=== PATIENT | male | born 1985 | race Two or more races ===

== ENCOUNTER 2022-10-28 08:17 | Inpatient (IN) | payer MEDICAID ==
[~2022-10-28] VITALS: Ht 182.9 cm; Wt 84.6 kg
[2022-10-28] MEDS ORDERED: LORazepam 2 MG TABLET PO PRN (09:15)
[2022-10-28] MEDS ORDERED: HALOPERIDOL 5 MG TABLET PO PRN (09:15)
[2022-10-28 11:40] VITALS: BP 115/68
[2022-10-28 16:05] VITALS: BP 122/72
[2022-10-28] MEDS: FluPHENAZine HCL 10 MG TABLET PO SCH (16:50)
[2022-10-29] MEDS: ZOLPIDEM TARTRATE 10 MG TABLET PO PRN ×2 (01:26→20:33)
[2022-10-29 08:15] LABS: BASOPHILS % (AUTO) 0.3 % (0.0-2.0); EOSINOPHILS % (AUTO) 2.8 % (1.0-6.0); HEMATOCRIT 44.5 % (41-53); LYMPHOCYTES # (AUTO) 2.6 K/uL (1.0-4.8); LYMPHOCYTES % (AUTO) 38.6 % (22.0-44.0); MEAN CORPUSCULAR HEMOGLOBIN 30.9 pg (26.0-34.0); MEAN CORPUSCULAR HGB CONC 33.6 G/dL (31.0-37.0); MEAN CORPUSCULAR VOLUME 92 fL (80-100); MONOCYTES # (AUTO) 0.5 K/uL (0.1-1.0); MONOCYTES % (AUTO) 7.4 % (2.0-9.0); NEUTROPHILS # (AUTO) 3.4 K/uL (1.8-7.7); NEUTROPHILS % (AUTO) 50.9 % (40.0-70.0); RED BLOOD CELL COUNT(AUTO) 4.84 MIL/uL (4.50-5.90); RED CELL DISTRIBUTION WIDTH 12.1 % (11.5-14.5)
[2022-10-29 08:33] LABS: HEMOGLOBIN A1C 5.3 % (3.8-5.6)
[2022-10-29 08:41] LABS: ALANINE AMINOTRANSFERASE 20 U/L (12-78); ALBUMIN 4.3 g/dL (3.4-5.0); ALKALINE PHOSPHATASE 51 U/L (46-116); ANION GAP 8 mmol/L (8-16); ASPARTATE AMINOTRANSFERASE 11 U/L (15-37); BILIRUBIN,TOTAL 0.4 mg/dL (0.1-1.0); CALCIUM, TOTAL 9.7 mg/dL (8.8-10.5); CARBON DIOXIDE 27 mmol/L (22-29); CHLORIDE 107 mmol/L (98-107); CHOL/HDL RATIO 2.7 (4.2-7.3); CHOLESTEROL 219 mg/dL (131-200); CREATININE 1.09 mg/dL (0.60-1.30); FREE T4 (FREE THYROXINE) 0.95 ng/dL (0.76-1.46); GLOMERULAR FILTR. RATE CALC > 60 mL/min (>60); GLUCOSE,RANDOM 116 mg/dL (70-110); HDL CHOLESTEROL 81 mg/dL (40-60); LDL CHOL (CALC.) 126 mg/dL (0-130); POTASSIUM 4.2 mmol/L (3.5-5.1); SODIUM SERUM 142 mmol/L (136-145); THYROID STIMULATING HORMONE 1.14 uIU/mL (0.36-3.74); TOTAL PROTEIN, SERUM 8.3 g/dL (6.4-8.2); TRIGLYCERIDES 59 mg/dL (15-150); UREA NITROGEN, BLOOD 9 mg/dL (7-18)
[2022-10-29] MEDS: FluPHENAZine HCL 10 MG TABLET PO SCH ×2 (09:00→17:00)
[2022-10-29] MEDS ORDERED: CloZAPine 25 MG TABLET PO SCH (09:00)
[2022-10-29 09:05] VITALS: BP 112/70
[2022-10-29 09:19] LABS: PLATELET COUNT (AUTO) 118 K/uL (150-450)
[2022-10-29] MEDS ORDERED: DOCUSATE SODIUM 100 MG CAPSULE PO PRN (10:15)
[2022-10-29] MEDS ORDERED: ACETAMINOPHEN 325 MG TABLET PO PRN (10:15)
[2022-10-29] MEDS ORDERED: MAG HYDROX/AL HYDROX/SIMETH ES 30 ML SUSPENSION UDCUP PO PRN (10:15)
[2022-10-29] MEDS ORDERED: CloNIDine HCL 0.1 MG TABLET PO PRN (10:15)
[2022-10-29] MEDS ORDERED: IBUPROFEN 400 MG TABLET PO PRN (10:15)
[2022-10-29] MEDS ORDERED: ALBUTEROL SULFATE HFA 90 MCG/PUFF 8 GM INHALER IH PRN (10:15)
[2022-10-29] MEDS ORDERED: ONDANSETRON HCL 4 MG TABLET PO PRN (10:15)
[2022-10-29] MEDS ORDERED: GuaiFENesin/D-METHORPHAN [SUGAR-FREE] 200-20MG/10 ML SYRUP UDCUP PO PRN (10:15)
[2022-10-29] MEDS ORDERED: NICOTINE 14 MG/24 HOUR PATCH TD PRN (10:15)
[2022-10-29] MEDS ORDERED: PETROLATUM,WHITE 28 GM JELLY TP PRN (10:15)
[2022-10-29] MEDS ORDERED: LOPERAMIDE HCL 2 MG CAPSULE PO PRN (10:15)
[2022-10-29 20:26] VITALS: BP 113/72
[2022-10-30 08:28] VITALS: BP 130/87
[2022-10-30] MEDS: FluPHENAZine HCL 10 MG TABLET PO SCH ×3 (08:52→16:18)
[2022-10-30] MEDS ORDERED: CloZAPine 25 MG TABLET PO SCH ×2 (09:00→21:00)
[2022-10-30 20:07] VITALS: BP 122/87
[2022-10-31 08:11] LABS: APPEARANCE,URINE HAZY (CLEAR); BILIRUBIN,URINE NEGATIVE (NEGATIVE); GLUCOSE, URINE (UA) NEGATIVE (NEGATIVE); KETONES,URINE NEGATIVE (NEGATIVE); LEUKOCYTE ESTERASE ,URINE NEGATIVE (NEGATIVE); NITRATE,URINE NEGATIVE (NEGATIVE); OCCULT BLOOD,URINE NEGATIVE (NEGATIVE); PH,URINE 5.5 (5.0-8.0); PROTEIN,URINE 30-70 mg/dL (NEGATIVE); SPECIFIC GRAVITIY, URINE 1.026 (1.003-1.030); UROBILINOGEN,URINE <=1.0 mg/dL (<=1.0)
[2022-10-31 08:16] LABS: AMPHET/METH SCREEN,URINE NEGATIVE (NEGATIVE); BARBITURATE SCREEN, URINE NEGATIVE (NEGATIVE); BENZODIAZEPINES SCREEN,URINE NEGATIVE (NEGATIVE); CANNABINOID SCREEN,URINE NEGATIVE (NEGATIVE); COCAINE SCREEN,URINE NEGATIVE (NEGATIVE); METHADONE SCREEN, URINE NEGATIVE (NEGATIVE); OPIATE SCREEN,URINE NEGATIVE (NEGATIVE); PHENCYCLIDINE SCREEN,URINE NEGATIVE (NEGATIVE)
[2022-10-31 08:21] LABS: BACTERIA,URINE None Seen /HPF (None Seen); RBC,URINE None Seen /HPF (0-2); WBC,URINE None Seen /HPF (0-5)
[2022-10-31 08:43] VITALS: BP 125/78
[2022-10-31] MEDS ORDERED: CloZAPine 25 MG TABLET PO SCH ×2 (09:00→21:00)
[2022-10-31] MEDS: FluPHENAZine HCL 10 MG TABLET PO SCH ×2 (09:00→16:57)
[2022-10-31] MEDS: MAGNESIUM HYDROXIDE SUSPENSION 30 ML UDCUP PO PRN (12:36)
[2022-10-31] MEDS: ZOLPIDEM TARTRATE 10 MG TABLET PO PRN (20:16)
[2022-10-31 20:19] VITALS: BP 128/70
[2022-11-01] MEDS: CloZAPine 25 MG TABLET PO SCH ×2 (08:36→20:45)
[2022-11-01 08:39] VITALS: BP 110/73
[2022-11-01] MEDS: FluPHENAZine HCL 10 MG TABLET PO SCH ×2 (08:41→16:41)
[2022-11-01 20:34] VITALS: BP 115/77
[2022-11-02] MEDS: MAGNESIUM HYDROXIDE SUSPENSION 30 ML UDCUP PO PRN (06:16)
[2022-11-02] MEDS: CloZAPine 25 MG TABLET PO SCH ×2 (08:59→20:21)
[2022-11-02] MEDS: FluPHENAZine HCL 10 MG TABLET PO SCH ×3 (09:00→16:28)
[2022-11-02 09:45] VITALS: BP 120/80
[2022-11-02 20:50] VITALS: BP 113/78
[2022-11-03] MEDS: FluPHENAZine HCL 10 MG TABLET PO SCH ×3 (08:06→17:00)
[2022-11-03] MEDS ORDERED: CloZAPine 25 MG TABLET PO SCH (09:00)
[2022-11-03 09:39] VITALS: BP 113/77
[2022-11-03 20:19] VITALS: BP 107/71
[2022-11-03] MEDS ORDERED: CloZAPine 100 MG TABLET PO SCH (21:00)
[2022-11-04 08:06] VITALS: BP 130/73
[2022-11-04] MEDS: FluPHENAZine HCL 10 MG TABLET PO SCH (08:06)
[2022-11-04] MEDS ORDERED: CloZAPine 25 MG TABLET PO SCH (09:00)
[2022-11-04] MEDS ORDERED: CLOZ25TA10 PO (12:15)
[2022-11-04] MEDS ORDERED: CLOZ100T11 PO (12:15)
[2022-11-04 17:31] LABS: GLUCOMETER DEV NAME(LOC) POC.BV
[2022-11-04] MEDS ORDERED: CloZAPine 100 MG TABLET PO SCH (21:00)
[2022-11-05] MEDS ORDERED: CloZAPine 25 MG TABLET PO SCH (09:00)
[2022-11-05] MEDS ORDERED: CloZAPine 100 MG TABLET PO SCH (21:00)
[2022-11-06] MEDS ORDERED: CloZAPine 100 MG TABLET PO SCH (09:00)
[2022-11-08] MEDS ORDERED: CloZAPine 25 MG TABLET PO SCH (09:00)
[2022-11-08] MEDS ORDERED: CloZAPine 100 MG TABLET PO SCH (21:00)
[2022-11-09] MEDS ORDERED: CloZAPine 25 MG TABLET PO SCH (09:00)
[2022-11-09] MEDS ORDERED: CloZAPine 100 MG TABLET PO SCH (21:00)
[2022-11-10] MEDS ORDERED: CloZAPine 100 MG TABLET PO SCH ×2 (09:00→21:00)
== END 2022-11-04 15:00 | disposition home or self-care (01) | DRG 750 ==
LOC: B3A 09:13
PROVIDERS: ADMIT Psychiatry & Neurology Child & Adolescent Psychiatry; ATTEND Psychiatry & Neurology Child & Adolescent Psychiatry
DX: F20.0 Paranoid schizophrenia (principal); D69.6 Thrombocytopenia, unspecified; R45.851 Suicidal ideations; E78.5 Hyperlipidemia, unspecified; R73.9 Hyperglycemia, unspecified; Z20.822 Contact with and (suspected) exposure to COVID-19
CPT/HCPCS: 80053; 80061; 80307; 81001; 83036; 84436; 84439; 84443; 85025; 86592; G0480